=== PATIENT | male | born 1985 | race American Indian/Alaskan Native ===

== ENCOUNTER 2018-04-10 20:29 | Emergency (ER) | payer OTHER ==
[2018-04-10 20:54] VITALS: BP 144/81; PULSE 65; RESP 18; TEMP 97.6; O2SAT 98
[2018-04-10] MEDS ORDERED: Bacitracin 500 Units/gm Oint Foilpak UD ONE (21:45)
--- NOTE | 2018-04-10 21:45 | C.PDOC ---
History Of Present Illness 32 year old male sustained a laceration to the right hand yesterday at 8:00pm with the sharp edge of a broken glass table while transporting it. He was able to clean the wound, no FB found, but today while working and lifting heavy things he felt pain to the area. Patient went to see PMD for wound check and was advised to come to the ER for evaluation. Denies weakness or numbness. Time Seen by Provider: 04/10/18 21:20 Chief Complaint (Nursing): Abnormal Skin Integrity History Per: Patient History/Exam Limitations: no limitations Onset/Duration Of Symptoms: Days Current Symptoms Are (Timing): Still Present Location Of Injury: Right: Hand Quality Of Symptoms: Other (Laceration) Recent travel outside of the [place]: No Past Medical History Reviewed: Historical Data, Nursing Documentation, Vital Signs Vital Signs: Last Vital Signs Temp 97.6 F 04/10/18 20:49 Pulse 65 04/10/18 20:49 Resp 18 04/10/18 20:49 BP 144/81 04/10/18 20:49 Pulse Ox 98 04/10/18 20:49 Family History: States: No Known Family Hx - Social History Hx Alcohol Use: Yes Hx Substance Use: No - Immunization History Hx Tetanus Toxoid Vaccination: Yes Hx Influenza Vaccination: No Hx Pneumococcal Vaccination: No Review Of Systems Musculoskeletal: Positive for: Hand Pain (Right) Skin: Positive for: Other (Laceration) Neurological: Negative for: Weakness, Numbness Physical Exam - Physical Exam Appears: Non-toxic Skin: Warm, Dry Head: Atraumatic, Normacephalic Eye(s): bilateral: Normal Inspection Extremity: Capillary Refill (<2 seconds), Other (Small 1cm superficial abrasion to palmar aspect of right hand. No foreign body palpated, no swelling, no erythema, no bleeding.) Pulses: Left Radial: Normal, Right Radial: Normal Neurological/Psych: Oriented x3, Normal Speech, Normal Motor, Normal Sensation ED Course And Treatment O2 Sat by Pulse Oximetry: 98 (Room air) Pulse Ox Interpretation: Normal Progress Note: Patient reassured that no suture repair is necessary at this time as woung is old and superficial, wound was cleansed and dressed by RN, patient advised to follow up with PMD. Disposition Counseled Patient/Family Regarding: Diagnosis, Need For Followup - Disposition Referrals: [facility] [Outside] Disposition: HOME/ ROUTINE Disposition Time: 21:42 Condition: STABLE Additional Instructions: Follow up wound care instructions Keep wound clean Apply small amount of bacitracin / Let wound air when home Return to ER if worse Instructions: Skin Abrasions (DC) Forms: [employer] (Georgian) - Clinical Impression Clinical Impression: Abrasion, hand - PA / FINISH GRINDER / Resident Statement MD/DO has reviewed & agrees with the documentation as recorded. - Scribe Statement The provider has reviewed the documentation as recorded by the Scribe Castillo Francois All medical record entries made by the Anayeliibursula were at my direction and personally dictated by me. I have reviewed the chart and agree that the record accurately reflects my personal performance of the history, physical exam, medical decision making, and the department course for this patient. I have also personally directed, reviewed, and agree with the discharge instructions and disposition.
== END 2018-04-10 21:50 | disposition home or self-care (01) ==
LOC: C.ER 20:29
DX: S60.511A Abrasion of right hand, initial encounter (principal); W25.XXXA Contact with sharp glass, initial encounter